=== PATIENT | male | born 1975 | race Caucasian/White ===

== ENCOUNTER 2018-07-31 03:29 | Emergency (ER) | payer MEDICAID ==
[~2018-07-31 03:29] MED LIST: ALLO100T PO; HYDR-4353 PO; IBUP-1984 PO; OMEP40CA37 PO
--- NOTE | 2018-07-31 03:49 | NUR ---
PT AGGITATED AND REFUSED BLOOD DRAW AND STATED "DONT TOUCH ME...TAKE THIS STUFF OFF ME...END OF STORY". OFFICER REMINDED HIM THAT HE HAD CONSENTED TO THE BLOOD DRAW. PT MAINTAINED HIS STANCE ON THIS. OFFICER STATED THEY WERE NOW LEAVING BACK TO [place] TO GET A WARRENT FOR THE BLOOD DRAW.
== END 2018-07-31 03:40 | disposition left against medical advice (07) ==
LOC: ER 03:30
DX: R45.1 Restlessness and agitation (principal); Z53.21 Procedure and treatment not carried out due to patient leaving prior to being seen by health care provider

== ENCOUNTER 2018-07-31 04:49 | Emergency (ER) | payer MEDICAID ==
[~2018-07-31] VITALS: Ht 188 cm; Wt 129.6 kg
[2018-07-31 04:51] VITALS: BP 154/96
== END 2018-07-31 05:18 ==
LOC: ER 04:50
DX: M70.22 Olecranon bursitis, left elbow (principal); M25.532 Pain in left wrist; M25.531 Pain in right wrist; Z98.890 Other specified postprocedural states; Z79.899 Other long term (current) drug therapy; V89.2XXA Person injured in unspecified motor-vehicle accident, traffic, initial encounter; Y93.89 Activity, other specified; Y92.89 Other specified places as the place of occurrence of the external cause; Y99.8 Other external cause status
CPT/HCPCS: 99283

== ENCOUNTER 2021-05-23 01:04 | Inpatient (IN) | payer MEDICAID ==
[~2021-05-23] VITALS: Ht 190.5 cm; Wt 120.5 kg
[~2021-05-23 01:04] MED LIST changes: +OMEP40CA21 PO; -OMEP40CA37 PO
[2021-05-23] MEDS ORDERED: morphine 4 MG/ML inj SYRINge IV ONE (01:30)
[2021-05-23] MEDS ORDERED: ondansetron/PF 4mg/2ml inj IV ONE (01:30)
[2021-05-23] MEDS ORDERED: vancomycin/NS 1 GM ADD-VANTAGE 250 ML IV ONE (02:00)
[2021-05-23] MEDS ORDERED: cefepime 1GM in D5W 50mL 50 ML IV ONE (02:00)
[2021-05-23 02:17] LABS: BASOPHILS # (AUTO) 0.1 X10'3 (0-0.2); BASOPHILS % (AUTO) 0.7 % (0-1); EOSINOPHILS # (AUTO) 0.2 X10'3 (0-0.9); EOSINOPHILS % (AUTO) 1.7 % (0-6); HEMATOCRIT 36.7 % (42.0-52.0); HEMOGLOBIN 12.7 g/dl (14.0-17.9); LYMPHOCYTES # (AUTO) 1.2 X10'3 (1.1-4.8); LYMPHOCYTES % (AUTO) 13.1 % (21-51); MEAN CORPUSCULAR HEMOGLOBIN 29.9 PG (27.0-31.0); MEAN CORPUSCULAR HGB CONC 34.6 g/dL (33.0-36.5); MEAN CORPUSCULAR VOLUME 86.4 FL (78-98); MEAN PLATELET VOLUME 7.6 FL (7.4-10.4); MONOCYTES # (AUTO) 0.6 X10'3 (0-0.9); MONOCYTES % (AUTO) 6.7 % (2-12); NEUTROPHILS # (AUTO) 7.2 X10'3 (1.8-7.7); NEUTROPHILS % (AUTO) 77.8 % (42-75); PLATELET COUNT 207 X10'3 (140-440); RED BLOOD COUNT 4.25 X10'6 (4.70-6.10); RED CELL DISTRIBUTION WIDTH 13.5 % (11.5-14.5); WHITE BLOOD COUNT 9.2 X10'3 (4.5-11.0)
[2021-05-23 02:30] LABS: ALBUMIN 2.4 G/DL (3.4-5.0); ANION GAP 7 (8-16); BLOOD UREA NITROGEN 14 MG/DL (7-18); BUN/CREATININE RATIO 16.9 (5.4-32.0); CHLORIDE 102 MMOL/L (99-107); CREATINE KINASE 304 U/L (39-308); CREATININE 0.83 MG/DL (0.60-1.10); GLUCOSE 247 MG/DL (70-104); POTASSIUM 3.5 MMOL/L (3.5-5.1); SODIUM 135 MMOL/L (135-145); eGFR > 90 ML/MIN
[2021-05-23] MEDS ORDERED: normal saline 1000ml 1,000 ML IV ONE (04:45)
--- NOTE | 2021-05-23 06:43 | NUR ---
PT LEG ELEVATED HIGHER WITH 4 PILLOWS AND LEG STILL HOT TO TOUCH REDNED AND SWELLING IS INCREASING PER PT.
[2021-05-23] MEDS ORDERED: magnesium 2GM in 50ml NS 50 ML IV PRN (07:45)
[2021-05-23] MEDS ORDERED: acetaminophen 325mg tablet PO PRN (07:45)
[2021-05-23] MEDS ORDERED: magnesium Cl slow-release 64mg tablet PO PRN (07:45)
[2021-05-23] MEDS ORDERED: magnesium 4gm in 100ml NS 100 ML IV PRN (07:45)
[2021-05-23] MEDS ORDERED: potassium Cl 20 mEq SR tablet PO PRN ×2 (07:45)
[2021-05-23] MEDS ORDERED: morphine 2 MG/ML inj. syringe IV PRN (07:45)
[2021-05-23] MEDS ORDERED: potassium Cl 40MEQ/1/2NS 520ml 520 ML IV PRN ×2 (07:45)
[2021-05-23] MEDS ORDERED: ondansetron/PF 4mg/2ml inj IV PRN (07:45)
[2021-05-23] MEDS: K and/or MAG REPLACEMENT MC SCH ×2 (08:00→20:00)
[2021-05-23] MEDS: docusate sod 100mg capsule PO SCH ×2 (08:00→20:00)
--- NOTE | 2021-05-23 08:54 | NUR ---
went to start the iv maintance fluid and pt responed in anger that he he wants to leave the hospital ,he is angry and has not got norco and motrin and stated no dr came to see me .informed the pt that i have pain meds order morphine available if he wants ,pt refused the pain med and stated that he wants to leave .paged dr marquis.
--- NOTE | 2021-05-23 09:07 | NUR ---
SPOKE TO DR APARICIO REGARDING PT SITUATION AND PAIN PER MD GIVE 2 MG OF IV MORPHINE AND GIVE NORCO 10-325 MG PO FOR SEVERE PAIN .WILL FOLLOW THE ORDERS.
[2021-05-23] MEDS ORDERED: ibuprofen tablet 400 MG TABLET PO ONE (09:10)
[2021-05-23] MEDS: normal saline 1000ml 1,000 ML IV SCH (09:11)
[2021-05-23] MEDS ORDERED: HYDROcodone/acetaminophen 10/325mg tab PO ONE (12:00)
[2021-05-23] MEDS: HYDROcodone/acetaminophen 10/325mg tab PO PRN ×2 (13:44→22:03)
[2021-05-23] MEDS: ibuprofen tablet 400 MG TABLET PO PRN ×2 (13:44→22:02)
[2021-05-23] MEDS ORDERED: IBUP-1986 PO (13:48)
[2021-05-23] MEDS ORDERED: OMEP20CA15 PO (13:48)
--- NOTE | 2021-05-23 16:58 | NUR ---
pt went to [facility] without informing. recived call from [facility] and stated that pt is wandering about the room assisgnment .went upstair with aleyda international banker to get the pt from [facility] ,pt came back to er by himself.pt instructed that he can't leave the unit on his own without notifiecation ,informed that he has room assisgnment upstairs and instructed wait in room to get upstairs.
--- NOTE | 2021-05-23 17:04 | NUR ---
charge nurse made aware waiting for call from surgical unit .
--- NOTE | 2021-05-23 17:10 | NUR ---
paged dr marquis at this time for alchol withdrawl protocoland to inform about the incident.
[2021-05-23] MEDS ORDERED: haloperidol 5mg tablet PO PRN (17:15)
[2021-05-23] MEDS ORDERED: haloperidol lactate 5mg/ml inj IM PRN (17:15)
[2021-05-23] MEDS ORDERED: LORazepam 2 mg/ml vial IV PRN (17:15)
[2021-05-23] MEDS ORDERED: LORazepam 1 MG tablet PO PRN (17:15)
--- NOTE | 2021-05-23 17:20 | NUR ---
spoke to dr marquis and taken telephone orders for alchol withdrawl protocol mild and also informed about the event that pt went to pcu to get himself admitted and then came back to er.
[2021-05-23 20:00] VITALS: BP 151/84
[2021-05-24] VITALS: BP 157/92
[2021-05-24 06:20] LABS: BASOPHILS % (AUTO) 0.5 % (0-1); EOSINOPHILS # (AUTO) 0.1 X10'3 (0-0.9); EOSINOPHILS % (AUTO) 1.7 % (0-6); HEMATOCRIT 36.9 % (42.0-52.0); HEMOGLOBIN 12.6 g/dl (14.0-17.9); LYMPHOCYTES # (AUTO) 0.8 X10'3 (1.1-4.8); LYMPHOCYTES % (AUTO) 19.2 % (21-51); MEAN CORPUSCULAR HEMOGLOBIN 29.9 PG (27.0-31.0); MEAN CORPUSCULAR HGB CONC 34.1 g/dL (33.0-36.5); MEAN CORPUSCULAR VOLUME 87.5 FL (78-98); MEAN PLATELET VOLUME 7.6 FL (7.4-10.4); MONOCYTES # (AUTO) 0.4 X10'3 (0-0.9); MONOCYTES % (AUTO) 9.6 % (2-12); PLATELET COUNT 146 X10'3 (140-440); RED BLOOD COUNT 4.22 X10'6 (4.70-6.10); RED CELL DISTRIBUTION WIDTH 13.4 % (11.5-14.5); WHITE BLOOD COUNT 4.3 X10'3 (4.5-11.0)
[2021-05-24 06:23] LABS: ANION GAP 9 (8-16); BLOOD UREA NITROGEN 10 MG/DL (7-18); BUN/CREATININE RATIO 15.2 (5.4-32.0); CALCIUM 7.9 MG/DL (8.5-10.1); CHLORIDE 103 MMOL/L (99-107); CREATININE 0.66 MG/DL (0.60-1.10); GLUCOSE 255 MG/DL (70-104); MAGNESIUM 1.7 MG/DL (1.5-2.4); SODIUM 136 MMOL/L (135-145); TOTAL CARBON DIOXIDE 23.8 MMOL/L (24-32); eGFR > 90 ML/MIN
--- NOTE | 2021-05-24 06:32 | NUR ---
Problems reprioritized. Patient report given, questions answered & plan of care reviewed with ILEANA Vann.
[2021-05-24 07:30] VITALS: BP 152/86
[2021-05-24] MEDS: folic acid 1mg tablet PO SCH (07:33)
[2021-05-24] MEDS: multivitamins, therapeutics tablet PO SCH (07:33)
[2021-05-24] MEDS: thiamine 100mg tablet PO SCH (07:34)
[2021-05-24] MEDS: K and/or MAG REPLACEMENT MC SCH ×2 (07:35→19:49)
[2021-05-24] MEDS: docusate sod 100mg capsule PO SCH ×2 (07:35→20:00)
--- NOTE | 2021-05-24 08:36 | NUR ---
PAGER ID: [phone] MESSAGE: [phone] Jose Macedo: patient admitted for IV abx, and has none ordered... thanks, sylvia [phone]
[2021-05-24] MEDS: normal saline 1000ml 1,000 ML IV SCH (10:20)
[2021-05-24] MEDS: vancomycin/NS 1 GM ADD-VANTAGE 250 ML X 1 DOSE IV SCH ×2 (10:20→17:46)
[2021-05-24] MEDS: HYDROcodone/acetaminophen 10/325mg tab PO PRN ×2 (10:31→17:33)
[2021-05-24] MEDS: ibuprofen tablet 400 MG TABLET PO PRN ×2 (10:31→17:32)
[2021-05-24 13:00] VITALS: BP 143/81
[2021-05-24] MEDS: cefepime 1GM in D5W 50mL 50 ML IV SCH (16:56)
--- NOTE | 2021-05-24 18:44 | NUR ---
Problems reprioritized. Patient report given, questions answered & plan of care reviewed with ILEANA Kennedy.
[2021-05-25] VITALS: BP 133/82
[2021-05-25] MEDS: cefepime 1GM in D5W 50mL 50 ML IV SCH ×4 (01:04→22:27)
[2021-05-25] MEDS: vancomycin/NS 1 GM ADD-VANTAGE 250 ML X 1 DOSE IV SCH ×2 (01:43→10:55)
[2021-05-25] MEDS: ibuprofen tablet 400 MG TABLET PO PRN ×2 (05:55→23:06)
[2021-05-25] MEDS: HYDROcodone/acetaminophen 10/325mg tab PO PRN ×3 (05:55→20:50)
--- NOTE | 2021-05-25 06:30 | NUR ---
Problems reprioritized. Patient report given, questions answered & plan of care reviewed with ILEANA Nava.
[2021-05-25 06:33] LABS: BASOPHILS % (AUTO) 0.3 % (0-1); EOSINOPHILS # (AUTO) 0.1 X10'3 (0-0.9); EOSINOPHILS % (AUTO) 1.7 % (0-6); HEMATOCRIT 38.6 % (42.0-52.0); HEMOGLOBIN 13.1 g/dl (14.0-17.9); LYMPHOCYTES # (AUTO) 1.2 X10'3 (1.1-4.8); LYMPHOCYTES % (AUTO) 20.1 % (21-51); MEAN CORPUSCULAR HGB CONC 33.9 g/dL (33.0-36.5); MEAN CORPUSCULAR VOLUME 88.4 FL (78-98); MEAN PLATELET VOLUME 7.6 FL (7.4-10.4); MONOCYTES # (AUTO) 0.6 X10'3 (0-0.9); MONOCYTES % (AUTO) 9.4 % (2-12); NEUTROPHILS # (AUTO) 4.2 X10'3 (1.8-7.7); NEUTROPHILS % (AUTO) 68.5 % (42-75); PLATELET COUNT 200 X10'3 (140-440); RED BLOOD COUNT 4.37 X10'6 (4.70-6.10); RED CELL DISTRIBUTION WIDTH 13.5 % (11.5-14.5); WHITE BLOOD COUNT 6.2 X10'3 (4.5-11.0)
--- NOTE | 2021-05-25 06:46 | NUR ---
Patient in room [facility] 358. I have received report from ILEANA Kennedy and had the opportunity to ask questions and assume patient care.
[2021-05-25 07:00] VITALS: BP 120/63
[2021-05-25 07:10] LABS: ALBUMIN 2.3 G/DL (3.4-5.0); ANION GAP 8 (8-16); BLOOD UREA NITROGEN 11 MG/DL (7-18); CALCIUM 8.4 MG/DL (8.5-10.1); CHLORIDE 104 MMOL/L (99-107); CREATININE 0.61 MG/DL (0.60-1.10); GLUCOSE 129 MG/DL (70-104); POTASSIUM 4.8 MMOL/L (3.5-5.1); SODIUM 139 MMOL/L (135-145); TOTAL CARBON DIOXIDE 27.4 MMOL/L (24-32); eGFR > 90 ML/MIN
[2021-05-25] MEDS: K and/or MAG REPLACEMENT MC SCH ×2 (08:00→20:00)
[2021-05-25] MEDS: docusate sod 100mg capsule PO SCH ×2 (08:21→20:00)
[2021-05-25] MEDS: thiamine 100mg tablet PO SCH (08:21)
[2021-05-25] MEDS: folic acid 1mg tablet PO SCH (08:21)
[2021-05-25] MEDS: multivitamins, therapeutics tablet PO SCH (08:21)
[2021-05-25] MEDS ORDERED: VANCOMYCIN LEVEL IV ONE (09:30)
[2021-05-25 12:00] VITALS: BP 149/83
[2021-05-25] MEDS ORDERED: linezolid 600mg tablet PO ONE (16:40)
[2021-05-25] MEDS: VANCOmycin 1250MG/NS 250ml Bag 250 ML IV SCH ×2 (17:11→22:28)
--- NOTE | 2021-05-25 18:34 | NUR ---
Problems reprioritized. Patient report given, questions answered & plan of care reviewed with ILEANA Kennedy.
[2021-05-25 20:00] VITALS: BP 160/80
[2021-05-25] MEDS: lactobacillus rhamnosus 10,000 MMU CELLS/CAPSULE PO SCH (20:00)
[2021-05-26] VITALS: BP 160/82
--- NOTE | 2021-05-26 05:30 | NUR ---
Patient refused IV attempt, morning labs and refused all po meds last evening. Pt was educated on the importance of these things in order to provide appropriate care. Patient states "I will speak to my doctor about it today." Charge nurse informed of patient's refusal. RN to continue to follow and monitor patient as appropriate.
--- NOTE | 2021-05-26 06:30 | NUR ---
Problems reprioritized. Patient report given, questions answered & plan of care reviewed with ILEANA Vann.
--- NOTE | 2021-05-26 07:20 | NUR ---
No IV access at this time. aware. PIC RN is going to attempt IV today. Addendum: 05/26/21 at 0721 by Soo Lopez RN Amended: Links added.
[2021-05-26 07:30] VITALS: BP 151/83
[2021-05-26] MEDS: K and/or MAG REPLACEMENT MC SCH ×2 (08:00→19:59)
[2021-05-26] MEDS: docusate sod 100mg capsule PO SCH ×2 (08:00→19:59)
[2021-05-26] MEDS: ibuprofen tablet 400 MG TABLET PO PRN ×3 (10:18→23:24)
[2021-05-26] MEDS: folic acid 1mg tablet PO SCH (10:18)
[2021-05-26] MEDS: multivitamins, therapeutics tablet PO SCH (10:18)
[2021-05-26] MEDS: lactobacillus rhamnosus 10,000 MMU CELLS/CAPSULE PO SCH ×2 (10:18→19:59)
[2021-05-26] MEDS: thiamine 100mg tablet PO SCH (10:19)
[2021-05-26] MEDS: HYDROcodone/acetaminophen 10/325mg tab PO PRN ×3 (10:19→23:23)
[2021-05-26] MEDS: cefepime 1GM in D5W 50mL 50 ML IV SCH ×3 (10:30→23:27)
[2021-05-26] MEDS: VANCOmycin 1250MG/NS 250ml Bag 250 ML IV SCH ×2 (11:49→20:18)
[2021-05-26 12:30] VITALS: BP 136/82
--- NOTE | 2021-05-26 15:36 | NUR ---
PAGER ID: [phone] MESSAGE: [phone] Jose HOWARD: WOULD YOU LIKE THE DIABETES PROTOCOL ON THIS PATIENT? FIELD ARTILLERY RADAR OPERATOR ALSO NEEDS TO KNOW IF YOU HAVE DISCUSSED DIABETES WITH THE PATIENT YET BECAUSE HE CANNOT DO HIS EDUCATION UNTIL YOU DO SO. THANK YOU!! [phone] FERNANDO
--- NOTE | 2021-05-26 17:03 | NUR ---
DM Consult: Pt admit DX RLE cellulitis w/ hx heavy etoh per EMR. Noted no PMH DM w/ A1C 7.0% this admit. Receiving thiamin, folic, MVI for etoh. RD d/w RN requires physician to notify pt of DX prior to RD education as well as glycemic protocol if MD agreeable. Pt Glu checked daily in AM though no CMP today Glu fluctuates 129-255mg/dl past 3 days without glycemic protocol. RN reports pt refusing Glu checks attempts today. PO 100% avg carb controlled diet w/ double proteins TIDWM meeting needs. LBM 05/25. Will continue to monitor. Rec: 1. continue carb controlled diet; double proteins TIDWM for satiety 2. routine bowel care 3. scaled wt this admit; subsequent weekly wts 4. DM ed following official DM DX by physician prior to discharge; A1C 7.0% Addendum: 05/26/21 at [address] Amended: Links added.
--- NOTE | 2021-05-26 18:15 | NUR ---
Problems reprioritized. Patient report given, questions answered & plan of care reviewed with ILEANA JONES.
[2021-05-26 20:00] VITALS: BP 145/79
[2021-05-27] VITALS: BP 163/88
[2021-05-27] MEDS: VANCOmycin 1250MG/NS 250ml Bag 250 ML IV SCH ×3 (04:27→20:00)
--- NOTE | 2021-05-27 06:37 | NUR ---
Problems reprioritized. Patient report given, questions answered & plan of care reviewed with ILEANA Peace.
[2021-05-27 06:48] LABS: ALBUMIN 2.5 G/DL (3.4-5.0); ANION GAP 7 (8-16); BLOOD UREA NITROGEN 20 MG/DL (7-18); BUN/CREATININE RATIO 27.4 (5.4-32.0); C-REACTIVE PROTEIN 2.02 MG/DL (0.0-0.5); CALCIUM 8.7 MG/DL (8.5-10.1); CHLORIDE 103 MMOL/L (99-107); CREATININE 0.73 MG/DL (0.60-1.10); GLUCOSE 321 MG/DL (70-104); MAGNESIUM 2.3 MG/DL (1.5-2.4); POTASSIUM 4.7 MMOL/L (3.5-5.1); SODIUM 135 MMOL/L (135-145); TOTAL CARBON DIOXIDE 24.8 MMOL/L (24-32); eGFR > 90 ML/MIN
[2021-05-27 06:49] LABS: EOSINOPHILS # (AUTO) 0.1 X10'3 (0-0.9); LYMPHOCYTES # (AUTO) 1.8 X10'3 (1.1-4.8); LYMPHOCYTES % (AUTO) 32.7 % (21-51); MEAN PLATELET VOLUME 8.3 FL (7.4-10.4); MONOCYTES # (AUTO) 0.5 X10'3 (0-0.9); MONOCYTES % (AUTO) 9.2 % (2-12)
[2021-05-27 06:52] LABS: BASOPHILS % (AUTO) 0.4 % (0-1); EOSINOPHILS % (AUTO) 2.1 % (0-6); HEMATOCRIT 39.8 % (42.0-52.0); HEMOGLOBIN 13.5 g/dl (14.0-17.9); MEAN CORPUSCULAR HEMOGLOBIN 30.5 PG (27.0-31.0); MEAN CORPUSCULAR VOLUME 89.7 FL (78-98); NEUTROPHILS # (AUTO) 3.1 X10'3 (1.8-7.7); NEUTROPHILS % (AUTO) 55.6 % (42-75); PLATELET COUNT 177 X10'3 (140-440); RED BLOOD COUNT 4.44 X10'6 (4.70-6.10); RED CELL DISTRIBUTION WIDTH 13.4 % (11.5-14.5); WHITE BLOOD COUNT 5.5 X10'3 (4.5-11.0)
[2021-05-27] MEDS: HYDROcodone/acetaminophen 10/325mg tab PO PRN ×3 (07:10→19:59)
[2021-05-27] MEDS: lactobacillus rhamnosus 10,000 MMU CELLS/CAPSULE PO SCH ×2 (07:10→20:00)
[2021-05-27] MEDS: thiamine 100mg tablet PO SCH (07:11)
[2021-05-27] MEDS: multivitamins, therapeutics tablet PO SCH (07:11)
[2021-05-27] MEDS: folic acid 1mg tablet PO SCH (07:11)
[2021-05-27 07:45] LABS: HIV ANTIBODY 1&2 RAPID NON-REACTIVE (Neg)
[2021-05-27] MEDS: normal saline 1000ml 1,000 ML IV SCH (07:45)
[2021-05-27] MEDS: K and/or MAG REPLACEMENT MC SCH ×2 (08:00→20:00)
[2021-05-27] MEDS: docusate sod 100mg capsule PO SCH ×2 (08:00→20:00)
[2021-05-27] MEDS: CEFEPIME 2gm in D5W 50mL 50 ML IV SCH ×2 (08:00→17:11)
[2021-05-27 09:50] VITALS: BP 121/48
--- NOTE | 2021-05-27 11:28 | NUR ---
Patient mad about still being here in the hospital, states Dr. Garcia said she would be in to see him this morning. Explained to the patient that she was in to see him but he requested to take a shower.
[2021-05-27] MEDS ORDERED: VANCOMYCIN LEVEL IV ONE ×2 (11:30→19:30)
--- NOTE | 2021-05-27 11:36 | NUR ---
NM will not be able to do the bone scan do to not having a dose for the scan to be completed. Informed patient, patient states that Dr. Hayes told him he could do the bone scan out patient if needed. Patients IV fell out and patient is refusing for another one to be placed. Patient refused labs which was a Vanco trough as well. Sent page to Dr. Garcia informing her that patient is requesting to see her.
[2021-05-27] MEDS: ibuprofen tablet 400 MG TABLET PO PRN ×2 (12:28→19:59)
--- NOTE | 2021-05-27 14:36 | NUR ---
PAGER ID: [phone] MESSAGE: Jose Macedo states that you said he was going to be put on PO abx, he doesn't want an IV at all. Are we switching to PO? Nata [id number] Addendum: 05/27/21 at 1440 by Nata Meyer RN Dr. Garcia returned page, she states that she told the patient that she would put him on PO abx when the redness and swelling is the size of an orange, she did not state that she would put him on abx at this time. IV abx are needed at this time for better penetration.
[2021-05-27] MEDS ORDERED: dextrose 50%-water 50ml dispensing syringe IV PRN ×2 (15:15)
[2021-05-27] MEDS ORDERED: insulin Lispro (HumaLOG) vial - multi-dose SQ SCH (15:15)
[2021-05-27] MEDS ORDERED: dextrose ORAL solution 15 GM/59 ML bottle PO PRN ×2 (15:15)
[2021-05-27] MEDS ORDERED: glucagon, human recombinant 1mg kit SUBCUT PRN (15:15)
--- NOTE | 2021-05-27 15:20 | NUR ---
PAGER ID: [phone] MESSAGE: Jose Macedo I put him on the hyper/hypo glycemic protocol after reading your note. He has not been on the protocol and his A1C is 7.0. Nata [phone]
[2021-05-27 20:00] VITALS: BP 152/78
[2021-05-27] MEDS: insulin glargine (Lantus) pen - multi-dose SQ SCH (21:00)
[2021-05-28] VITALS: BP 152/81
[2021-05-28] MEDS: CEFEPIME 2gm in D5W 50mL 50 ML IV SCH ×3 (00:09→15:56)
[2021-05-28] MEDS: VANCOmycin 1250MG/NS 250ml Bag 250 ML IV SCH (04:00)
--- NOTE | 2021-05-28 06:44 | NUR ---
Problems reprioritized. Patient report given, questions answered & plan of care reviewed with ILEANA Hnana.
--- NOTE | 2021-05-28 06:55 | NUR ---
Patient in room [facility] 358. I have received report from Marcia TEJEDA and had the opportunity to ask questions and assume patient care.
--- NOTE | 2021-05-28 07:30 | NUR ---
Pt is refusing ALL Diabetic care, pt states he is NOT DM and will not be on CC diet or allowed to be accu check. Pt also has a back pack full of muffins, sandwiches, juices and sodas which he eats through the day. His states his mother brings him snacks. he is Rude and belligerent. Pt mention he will place a formal complain because this hospital is horrible. Pt states he is going home today and wants paperwork ready. Will page Dr marquis.
[2021-05-28] MEDS: K and/or MAG REPLACEMENT MC SCH ×2 (08:00→20:00)
[2021-05-28] MEDS: docusate sod 100mg capsule PO SCH ×2 (08:00→20:00)
[2021-05-28] MEDS: ibuprofen tablet 400 MG TABLET PO PRN ×3 (08:25→21:30)
[2021-05-28] MEDS: HYDROcodone/acetaminophen 10/325mg tab PO PRN ×3 (08:25→21:30)
[2021-05-28] MEDS: multivitamins, therapeutics tablet PO SCH (08:26)
[2021-05-28] MEDS: thiamine 100mg tablet PO SCH (08:27)
[2021-05-28] MEDS: lactobacillus rhamnosus 10,000 MMU CELLS/CAPSULE PO SCH ×2 (08:27→20:00)
[2021-05-28] MEDS: folic acid 1mg tablet PO SCH (08:28)
--- NOTE | 2021-05-28 09:30 | NUR ---
Pt refusing IV antibiotics, refused labs and his vanco trough. Yelled at lab and told them to leave him alone. Pharmacy aware of refusal.
[2021-05-28 11:00] VITALS: BP 152/84
--- NOTE | 2021-05-28 12:24 | NUR ---
PAGER ID: [phone] MESSAGE: Chetan Remington #[id number]- Pt finally got the scan done, he would like to speak to yo about what he wants you to do for his DC orders. He has questions for you. Thank you Cyndi Turner [phone]
--- NOTE | 2021-05-28 15:16 | NUR ---
kyler Torres Accu checks Addendum: 05/28/21 at 1523 by Cyndi Good RN Amended: Links added.
--- NOTE | 2021-05-28 17:32 | NUR ---
PAGER ID: [phone] MESSAGE: Chetan Macedo 358B- Pt's can results are up. thank you. Pt being DC'ed?? thank you Cyndi Turner [phone]
[2021-05-28 18:00] VITALS: BP 142/77
--- NOTE | 2021-05-28 18:11 | NUR ---
Patient in room [facility]ANK[facility] 358B. I have received report from ILEANA Hanna and had the opportunity to ask questions and assume patient care.
--- NOTE | 2021-05-28 19:05 | NUR ---
Patient refused physical assessment, medications, and any IV to be initiated since he pulled out the other one. Attempted to explain the risks of refusing treatment, patient verbalized "you guys are not doing anything for me, cant keep an IV, I'm just sitting here and I can do that at home. Just discharge me and give me oral antibiotics Dr. Massey said they work just as good as IV antibiotics. So why can't I go home" Attempted again to make patient understand that some conditions require IV antibiotics since it works faster, although oral works good too, but it can onl be administered with a doctor's order. Patient refused to be educated, stated "this is doing anything to me. I just wanna go home. I have called Dr Montalvo and Pablito for second opinion. They'll come first thing in the morning and then I will get to go home. You're just making me madder. We're done talking." I exited patient's room, as he was throwing things on the ground. valve setter aware. Will continue to monitor.
--- NOTE | 2021-05-28 19:27 | NUR ---
Pt angry refusing care pulled only IV, Pt cussing, angry and arguing about plan of care communicated. Pt to get a PICC on Saturday for IV antibiotics for 6weeks. Pt refuses to get a picc, demanding to speak to Dr marquis and threatening to call adolescent specialist. Dr. Marquis called and spoke to pt. Pt refusing all DM protocol care as well Dr shelley. pt very rude and angry. stating no one has given him any care. which is not true, he was a very heavy load to have, demanding, rude and abusive verbally. Refusing care.
[2021-05-28] MEDS: insulin glargine (Lantus) pen - multi-dose SQ SCH (22:04)
[2021-05-29] MEDS: CEFEPIME 2gm in D5W 50mL 50 ML IV SCH
--- NOTE | 2021-05-29 05:30 | NUR ---
Patient put economist research assistant light, saying he wants to shower. This RN set up shower and brought shampoo and lotion to patient's room to inform that the bathroom is ready. Patient shouted at this RN saying "I asked for this last night, and no one came in to tell me. I have been in this hospital for a week and no one has given me a toothbrush!" This RN responded "when I came in last night to talk, you said you didn't want to talk anymore.." This RN realized patient has been recording this conversation, and verbalized "you do not have permission to record me." patient then shouted "who told you I can't record? son of a bitch, I can do whatever." This RN then exited the room at this time as she felt unsafe, as patient continued to shout unspeakable words out loud.
--- NOTE | 2021-05-29 06:13 | NUR ---
Problems reprioritized. Patient report given, questions answered & plan of care reviewed with ILEANA Peace and Azar Student Nurse.
--- NOTE | 2021-05-29 07:20 | NUR ---
I have received report from NOC shift RN and had the opportunity to ask questions and assume patient care.
--- NOTE | 2021-05-29 07:43 | NUR ---
PAGER ID: [phone] MESSAGE: Aleida MacedoB wants to be discharged today. He doesn't have an IV, very hard stick. Can I get an order for PO Ativan? Nata [phone]
[2021-05-29] MEDS: normal saline 1000ml 1,000 ML IV SCH ×2 (07:45→10:41)
[2021-05-29] MEDS: K and/or MAG REPLACEMENT MC SCH (08:00)
[2021-05-29] MEDS ORDERED: cefepime inj 2 GM in normal saline 100ml IV soln 100 ML IV SCH (08:00)
[2021-05-29] MEDS: docusate sod 100mg capsule PO SCH (08:00)
[2021-05-29] MEDS ORDERED: CEFEPIME 2gm in D5W 50mL 50 ML IV SCH (08:00)
[2021-05-29] MEDS: thiamine 100mg tablet PO SCH (08:14)
[2021-05-29] MEDS: lactobacillus rhamnosus 10,000 MMU CELLS/CAPSULE PO SCH (08:14)
[2021-05-29] MEDS: multivitamins, therapeutics tablet PO SCH (08:14)
[2021-05-29] MEDS: folic acid 1mg tablet PO SCH (08:15)
[2021-05-29] MEDS: HYDROcodone/acetaminophen 10/325mg tab PO PRN ×2 (08:22→14:33)
[2021-05-29] MEDS: ibuprofen tablet 400 MG TABLET PO PRN ×2 (08:22→14:33)
[2021-05-29] MEDS ORDERED: LORazepam 0.5 MG tablet PO PRN (09:00)
[2021-05-29 11:53] VITALS: BP 153/84
--- NOTE | 2021-05-29 14:02 | NUR ---
PAGER ID: [phone] MESSAGE: Jose Macedo moved to [id number]... Dr Hayes came and saw patient. He will be going on PO medications. He's wondering if he will be discharged today or not? Nata [id number]
--- NOTE | 2021-05-29 14:30 | NUR ---
Patient refusing PICC line, Dr. Hayes educated patient at bedside, refused. Patient states that he will follow up with his surgeon in [place]. Patient states that he will call him and he knows that the surgeon will take him into his office right away. Patient wants to take PO ABX and not have a PICC. Patient aware that ABX will only suppress the infection and not cure it. Patient states that he "doesn't want a PICC in [his] arm from 6 to 8 weeks". Patient ops to only take PO ABX medications. Education per Dr. Hayes over risks and benefits were completed. Patient verbally acknowledges understanding.
--- NOTE | 2021-05-29 14:48 | NUR ---
F/u 05/29: CHRISTINA d/w RN who reports pt aware of DM DX though in denial mostly. Pt seen by CHRISTINA for written/verbal DM ed w/ RD contact information provided. Pt declined verbal ed at this time but was agreeable to written DM ed. CHRISTINA encouraged pt to contact dietitian's office if further questions/concerns. Addendum: 05/29/21 at [address] Amended: Links added.
[2021-05-29] MEDS ORDERED: CEPH-585 PO (14:54)
--- NOTE | 2021-05-29 15:42 | NUR ---
Patient discharged, all belongings are packed and in patients possession. IV discontinued. Patient aware of all doses to take for ABX and home medications, documented next dose on paper work. Wound care supplies provided and in belongings. Education completed and acknowledged verbally of understanding by patient. Patient to pickle pumper medication ABX at pharmacy on file. WILLIAM, A&Ox4.
--- NOTE | 2021-05-29 15:42 | NUR ---
Patient discharged on paper, paper work signed, education completed. Waiting on a ride.
--- NOTE | 2021-05-29 15:54 | NUR ---
Wound care was at bedside to see pt prior to discharge. Pt allowed for examination. We were consulted for right great toe wound. The right great toe presented as blackened eschar. Painted with betadine as it was intact. Likely a puncture wound or DM ulcer. The pt had abscess on the right lower leg with bright red inflammation and purulent drainage. Applied oil emulsion and covered with gauze, secured with medipore tape. Pt repeatedly tried to "pop" the wound against wound care education.
[2021-05-30] MEDS ORDERED: cefepime 2g/NS 100ml ADVANTAGE 100 ML IV SCH
== END 2021-05-29 15:50 | disposition home or self-care (01) | DRG 349 ==
LOC: ER 01:05 → ED HOLD 07:49 → SUR 3N 17:30
PROVIDERS: ADMIT Internal Medicine; ATTEND Internal Medicine
PROC: CP1C1ZZ Planar Nuclear Medicine Imaging of Right Lower Extremity using Technetium 99m (Tc-99m) (ICD-10-PCS; principal; 2021-05-28)
DX: T84.622A Infection and inflammatory reaction due to internal fixation device of right tibia, initial encounter (principal); L03.115 Cellulitis of right lower limb; E11.40 Type 2 diabetes mellitus with diabetic neuropathy, unspecified; F10.20 Alcohol dependence, uncomplicated; K21.9 Gastro-esophageal reflux disease without esophagitis; M10.9 Gout, unspecified; Z96.661 Presence of right artificial ankle joint; Y83.1 Surgical operation with implant of artificial internal device as the cause of abnormal reaction of the patient, or of later complication, without mention of misadventure at the time of the procedure; M24.671 Ankylosis, right ankle; G89.29 Other chronic pain; Z53.29 Procedure and treatment not carried out because of patient's decision for other reasons; W23.1XXA Caught, crushed, jammed, or pinched between stationary objects, initial encounter; S87.81XA Crushing injury of right lower leg, initial encounter; Y93.89 Activity, other specified; Y92.89 Other specified places as the place of occurrence of the external cause; Y99.8 Other external cause status
CPT/HCPCS: 36415; 73590; 78315; 80048; 80202; 82550; 82948; 83036; 83605; 83735; 84550; 85025; 86140; 86703; 87040; 87070; 87081; 93971; 96365; 96366; 96368; 96375; 99285; A9503; G0378; J0692; J1815; J2270; J2405; J3370; J7030

== ENCOUNTER 2021-10-17 13:46 | Inpatient (IN) | payer MEDICAID ==
[~2021-10-17] VITALS: Ht 190.5 cm; Wt 129.6 kg
[~2021-10-17 13:46] MED LIST changes: -ALLO100T PO; -HYDR-4353 PO; -IBUP-1984 PO; +IBUP-1986 PO; +OMEP20CA15 PO; -OMEP40CA21 PO
[2021-10-17] MEDS ORDERED: aspirin 325mg tablet PO ONE (14:30)
[2021-10-17 14:31] LABS: BASOPHILS % (AUTO) 0.2 % (0-1); EOSINOPHILS # (AUTO) 0.1 X10'3 (0-0.9); HEMATOCRIT 49.5 % (42.0-52.0); HEMOGLOBIN 16.4 g/dl (14.0-17.9); LYMPHOCYTES # (AUTO) 2.2 X10'3 (1.1-4.8); LYMPHOCYTES % (AUTO) 29.3 % (21-51); MEAN CORPUSCULAR HEMOGLOBIN 28.5 PG (27.0-31.0); MEAN CORPUSCULAR VOLUME 86.2 FL (78-98); MEAN PLATELET VOLUME 7.7 FL (7.4-10.4); MONOCYTES # (AUTO) 0.7 X10'3 (0-0.9); MONOCYTES % (AUTO) 8.7 % (2-12); NEUTROPHILS # (AUTO) 4.6 X10'3 (1.8-7.7); NEUTROPHILS % (AUTO) 60.8 % (42-75); PLATELET COUNT 179 X10'3 (140-440); RED BLOOD COUNT 5.74 X10'6 (4.70-6.10); RED CELL DISTRIBUTION WIDTH 14.3 % (11.5-14.5); WHITE BLOOD COUNT 7.6 X10'3 (4.5-11.0)
[2021-10-17 14:33] LABS: APTT 27 SECONDS (22-32)
[2021-10-17 14:37] LABS: ALANINE AMINOTRANSFERASE 34 U/L (12-78); ALBUMIN 3.8 G/DL (3.4-5.0); ALBUMIN/GLOBULIN RATIO 0.8 (1.1-1.5); ALKALINE PHOSPHATASE 113 IU/L (46-116); ANION GAP 5 (8-16); ASPARTATE AMINO TRANSFERASE 36 U/L (10-37); BLOOD UREA NITROGEN 16 MG/DL (7-18); BUN/CREATININE RATIO 26.7 (5.4-32.0); CALCIUM 9.7 MG/DL (8.5-10.1); CHLORIDE 102 MMOL/L (99-107); GLUCOSE 129 MG/DL (70-104); SODIUM 137 MMOL/L (135-145); TOTAL CARBON DIOXIDE 30.4 MMOL/L (24-32); TOTAL PROTEIN 8.3 G/DL (6.4-8.2); eGFR > 90 ML/MIN
[2021-10-17 15:21] LABS: ETHANOL < 0.010 GM/DL (0.0-0.010)
[2021-10-17] MEDS ORDERED: acetaminophen 325mg tablet PO PRN ×2 (15:30)
[2021-10-17] MEDS ORDERED: ondansetron/PF 4mg/2ml inj IV PRN (15:30)
[2021-10-17] MEDS ORDERED: LORazepam 2 mg/ml vial IV PRN (15:30)
[2021-10-17] MEDS ORDERED: potassium CL 10mEq/100ml bag 100 ML IV PRN (15:30)
[2021-10-17] MEDS ORDERED: magnesium 2GM in 50ml NS 50 ML IV PRN (15:30)
[2021-10-17] MEDS ORDERED: haloperidol 5mg tablet PO PRN (15:30)
[2021-10-17] MEDS ORDERED: haloperidol lactate 5mg/ml inj IM PRN (15:30)
[2021-10-17] MEDS ORDERED: magnesium hydroxide 30ml (MOM) UD suspension PO PRN (15:30)
[2021-10-17] MEDS ORDERED: potassium Cl 20 mEq SR tablet PO PRN ×2 (15:30)
[2021-10-17] MEDS ORDERED: mag hydrox/Alum hydrox/simeth 30ml oral suspension PO PRN (15:30)
[2021-10-17] MEDS ORDERED: magnesium 4gm in 100ml NS 100 ML IV PRN (15:30)
[2021-10-17] MEDS ORDERED: iohexol 350MG/ML 100ml bottle IV ONE (15:35)
[2021-10-17] MEDS: thiamine 100mg tablet PO SCH ×2 (15:43→16:06)
[2021-10-17] MEDS: folic acid 1mg tablet PO SCH ×2 (15:44→16:06)
[2021-10-17] MEDS: multivitamins, therapeutics tablet PO SCH ×2 (15:44→16:06)
[2021-10-17] MEDS ORDERED: dextrose 50%-water 50ml dispensing syringe IV PRN ×2 (15:55)
[2021-10-17] MEDS ORDERED: MESSAGE TO PHARMACY PO ONE (15:55)
[2021-10-17] MEDS ORDERED: insulin Lispro (HumaLOG) vial - multi-dose SQ SCH (15:55)
[2021-10-17] MEDS ORDERED: glucagon, human recombinant 1mg kit SUBCUT PRN (15:55)
[2021-10-17] MEDS ORDERED: DEXTROSE 15 GM of carb/4 tabs (each vial/BOTTLE has 4 tablets) PO PRN ×2 (15:55)
[2021-10-17] MEDS: normal saline 1000ml 1,000 ML IV SCH (16:06)
--- NOTE | 2021-10-17 16:12 | NUR ---
pt was able to swollow water and asa when i passed meds next nurse passing meds pt coughed with water
[2021-10-17 16:15] LABS: URINE AMPHETAMINE SCREEN NEGATIVE (Neg); URINE BARBITUATE SCREEN NEGATIVE (Neg); URINE BENZODIAZEPINES SCREEN NEGATIVE (Neg); URINE CANNABINOID SCREEN NEGATIVE (Neg); URINE COCAINE SCREEN NEGATIVE (Neg); URINE METHADONE SCREEN NEGATIVE (Neg); URINE OPIATE SCREEN NEGATIVE (Neg); URINE PHENCYCLIDINE SCREEN NEGATIVE (Neg)
[2021-10-17] MEDS ORDERED: folic acid 1mg tablet PO ONE (16:15)
[2021-10-17] MEDS ORDERED: thiamine 100mg tablet PO ONE (16:20)
[2021-10-17] MEDS ORDERED: multivitamins, therapeutics tablet PO ONE (16:20)
[2021-10-17 16:33] LABS: HEMOGLOBIN A1C 6.2 % (4.5-6.2)
[2021-10-17] MEDS ORDERED: clopidogrel 75mg tablet PO ONE (16:40)
[2021-10-17 16:41] LABS: CHOL/HDL RATIO 5.5 (0.00-4.99); CHOLESTEROL 177 MG/DL (0-200); HDL CHOLESTEROL 32 MG/DL (35-60); LDL CHOLESTEROL 120 MG/DL (50-100); TRIGLYCERIDES 146 MG/DL (20-135)
--- NOTE | 2021-10-17 17:24 | NUR ---
vascular at bedside.
--- NOTE | 2021-10-17 17:37 | NUR ---
bedside swallow eval,pt without gag reflex when tongue depressor applied to posterior tongue.Held po meds.
[2021-10-17] MEDS: docusate sod 100mg capsule PO SCH (18:43)
[2021-10-17] MEDS: K and/or MAG REPLACEMENT MC SCH (18:43)
[2021-10-17 20:55] VITALS: BP 138/85
[2021-10-17] MEDS: insulin glargine (Lantus) pen - multi-dose SQ SCH (21:00)
[2021-10-18 00:55] VITALS: BP 143/79
[2021-10-18] MEDS: normal saline 1000ml 1,000 ML IV SCH ×3 (04:18→22:25)
[2021-10-18 05:50] LABS: BASOPHILS % (AUTO) 0.4 % (0-1); EOSINOPHILS # (AUTO) 0.1 X10'3 (0-0.9); EOSINOPHILS % (AUTO) 1.9 % (0-6); HEMATOCRIT 46.6 % (42.0-52.0); HEMOGLOBIN 15.5 g/dl (14.0-17.9); LYMPHOCYTES # (AUTO) 2.7 X10'3 (1.1-4.8); MEAN CORPUSCULAR HEMOGLOBIN 28.9 PG (27.0-31.0); MEAN CORPUSCULAR HGB CONC 33.3 g/dL (33.0-36.5); MEAN CORPUSCULAR VOLUME 86.7 FL (78-98); MEAN PLATELET VOLUME 7.9 FL (7.4-10.4); MONOCYTES # (AUTO) 0.7 X10'3 (0-0.9); MONOCYTES % (AUTO) 9.4 % (2-12); NEUTROPHILS # (AUTO) 4.1 X10'3 (1.8-7.7); NEUTROPHILS % (AUTO) 53.3 % (42-75); PLATELET COUNT 170 X10'3 (140-440); RED BLOOD COUNT 5.38 X10'6 (4.70-6.10); RED CELL DISTRIBUTION WIDTH 14.6 % (11.5-14.5); WHITE BLOOD COUNT 7.7 X10'3 (4.5-11.0)
[2021-10-18 05:57] LABS: ALANINE AMINOTRANSFERASE 32 U/L (12-78); ALBUMIN 3.4 G/DL (3.4-5.0); ALBUMIN/GLOBULIN RATIO 0.9 (1.1-1.5); ALKALINE PHOSPHATASE 104 IU/L (46-116); ANION GAP 12 (8-16); ASPARTATE AMINO TRANSFERASE 33 U/L (10-37); BILIRUBIN,TOTAL 1.2 MG/DL (0.1-1.0); BLOOD UREA NITROGEN 17 MG/DL (7-18); BUN/CREATININE RATIO 24.6 (5.4-32.0); CALCIUM 9.2 MG/DL (8.5-10.1); CHLORIDE 103 MMOL/L (99-107); CREATININE 0.69 MG/DL (0.60-1.10); GLUCOSE 129 MG/DL (70-104); LIPASE 132 U/L (73-393); MAGNESIUM 1.9 MG/DL (1.5-2.4); PHOSPHORUS 4.3 MG/DL (2.3-4.5); POTASSIUM 4.2 MMOL/L (3.5-5.1); SODIUM 140 MMOL/L (135-145); TOTAL CARBON DIOXIDE 25.3 MMOL/L (24-32); TOTAL PROTEIN 7.4 G/DL (6.4-8.2); eGFR > 90 ML/MIN
[2021-10-18 06:00] VITALS: BP 147/84
[2021-10-18] MEDS: K and/or MAG REPLACEMENT MC SCH ×2 (07:45→20:00)
[2021-10-18] MEDS ORDERED: atorvastatin 20mg tablet PO SCH (08:00)
[2021-10-18] MEDS ORDERED: clopidogrel 75mg tablet PO SCH (08:00)
[2021-10-18] MEDS: aspirin 81mg, enteric-coated 1 TAB TABLET.DR PO SCH (09:40)
[2021-10-18] MEDS: docusate sod 100mg capsule PO SCH ×2 (09:41→20:00)
[2021-10-18] MEDS: thiamine 100mg tablet PO SCH (09:41)
[2021-10-18] MEDS: multivitamins, therapeutics tablet PO SCH (09:41)
[2021-10-18] MEDS: folic acid 1mg tablet PO SCH (09:42)
[2021-10-18 11:00] VITALS: BP 125/76
--- NOTE | 2021-10-18 14:51 | NUR ---
Paged Dr. Mayes at this time with the following concern; Chetan Macedo RM [id number] patient is too big for MRI machine. Will not be able to be completed here Lizzette TEJEDA ext [phone]
[2021-10-18] MEDS: LORazepam 1 MG tablet PO PRN (15:23)
[2021-10-18 18:00] VITALS: BP 122/62
--- NOTE | 2021-10-18 19:25 | NUR ---
received report from Lizzette TEJEDA , EMS here to pick patient for MRI at [facility]. patient in stable condition V/S WNL DENIES OF PAIN. rudy administered prio to transportation
--- NOTE | 2021-10-18 20:58 | NUR ---
pt returned from [facility] via ambulance transport. tele intact. call light at bedside.
[2021-10-18] MEDS: insulin glargine (Lantus) pen - multi-dose SQ SCH (21:00)
[2021-10-18 22:00] VITALS: BP 127/61
--- NOTE | 2021-10-18 23:30 | NUR ---
Dr. Ferreira read report from MRI just faxed over from [facility]. requested consult with neurology.
--- NOTE | 2021-10-18 23:51 | NUR ---
neurlogy consult returned call to station. read the MRI brain report - MD will contact Dr. Ferreira directly. no orders at this time
[2021-10-19] MEDS ORDERED: heparin 10,000 units/1 ML INJ IV ONE
[2021-10-19] MEDS ORDERED: heparin 10,000 units/1 ML INJ IV PRN
[2021-10-19] MEDS ORDERED: heparin 25,000 UNIT/250ml bag 250 ML IV SCH
[2021-10-19 03:09] VITALS: BP 157/90
[2021-10-19 06:00] VITALS: BP 154/87
[2021-10-19 06:51] LABS: BASOPHILS % (AUTO) 0.3 % (0-1); EOSINOPHILS # (AUTO) 0.1 X10'3 (0-0.9); EOSINOPHILS % (AUTO) 1.5 % (0-6); HEMATOCRIT 43.5 % (42.0-52.0); HEMOGLOBIN 14.5 g/dl (14.0-17.9); LYMPHOCYTES # (AUTO) 2.2 X10'3 (1.1-4.8); LYMPHOCYTES % (AUTO) 34.6 % (21-51); MEAN CORPUSCULAR HEMOGLOBIN 28.8 PG (27.0-31.0); MEAN CORPUSCULAR HGB CONC 33.4 g/dL (33.0-36.5); MEAN CORPUSCULAR VOLUME 86.4 FL (78-98); MEAN PLATELET VOLUME 7.9 FL (7.4-10.4); MONOCYTES # (AUTO) 0.6 X10'3 (0-0.9); MONOCYTES % (AUTO) 9.2 % (2-12); NEUTROPHILS # (AUTO) 3.5 X10'3 (1.8-7.7); NEUTROPHILS % (AUTO) 54.4 % (42-75); PLATELET COUNT 135 X10'3 (140-440); RED BLOOD COUNT 5.03 X10'6 (4.70-6.10); RED CELL DISTRIBUTION WIDTH 14.2 % (11.5-14.5); WHITE BLOOD COUNT 6.4 X10'3 (4.5-11.0)
--- NOTE | 2021-10-19 06:58 | NUR ---
Problems reprioritized. Patient report given, questions answered & plan of care reviewed with Lizzette.
[2021-10-19 07:10] LABS: ALANINE AMINOTRANSFERASE 28 U/L (12-78); ALBUMIN 3.3 G/DL (3.4-5.0); ALBUMIN/GLOBULIN RATIO 0.8 (1.1-1.5); ALKALINE PHOSPHATASE 97 IU/L (46-116); ANION GAP 11 (8-16); ASPARTATE AMINO TRANSFERASE 32 U/L (10-37); BILIRUBIN,TOTAL 0.8 MG/DL (0.1-1.0); BLOOD UREA NITROGEN 17 MG/DL (7-18); BUN/CREATININE RATIO 28.8 (5.4-32.0); CALCIUM 8.6 MG/DL (8.5-10.1); CHLORIDE 105 MMOL/L (99-107); CREATININE 0.59 MG/DL (0.60-1.10); GLUCOSE 126 MG/DL (70-104); LIPASE 160 U/L (73-393); MAGNESIUM 1.8 MG/DL (1.5-2.4); PHOSPHORUS 3.7 MG/DL (2.3-4.5); POTASSIUM 3.9 MMOL/L (3.5-5.1); SODIUM 140 MMOL/L (135-145); TOTAL PROTEIN 7.3 G/DL (6.4-8.2); eGFR > 90 ML/MIN
[2021-10-19] MEDS: normal saline 1000ml 1,000 ML IV SCH ×2 (07:30→19:48)
[2021-10-19] MEDS: K and/or MAG REPLACEMENT MC SCH ×2 (07:44→19:43)
[2021-10-19] MEDS: thiamine 100mg tablet PO SCH (08:00)
[2021-10-19] MEDS: docusate sod 100mg capsule PO SCH ×2 (08:00→19:43)
[2021-10-19] MEDS: aspirin 81mg, enteric-coated 1 TAB TABLET.DR PO SCH (08:00)
[2021-10-19] MEDS: folic acid 1mg tablet PO SCH (08:00)
[2021-10-19] MEDS: atorvastatin 20mg tablet PO SCH (09:14)
[2021-10-19] MEDS: multivitamins, therapeutics tablet PO SCH (09:15)
[2021-10-19] MEDS: LORazepam 1 MG tablet PO PRN (09:32)
[2021-10-19] MEDS: HYDROcodone/acetaminophen 5mg/325mg tablet PO PRN (09:33)
[2021-10-19] MEDS ORDERED: iohexol 350MG/ML 100ml bottle IV ONE (10:58)
[2021-10-19 11:00] VITALS: BP 140/83
[2021-10-19 15:00] VITALS: BP 161/84
[2021-10-19 18:00] VITALS: BP 148/66
--- NOTE | 2021-10-19 19:15 | NUR ---
late entry 1849. contacted neuro-tele for repeat consult s/p CTA of the head to re-evaluate need for heparin drip. called Radiology to push images through to [facility]. sawdust machine operator Marina states she has the images. 1904 Dr from [place] called after reviewing the images and wrote recommendations for d/c heprin drip and reststarting patient on plavix and aspirin. states he will write his recommendation on [facility] for Dr. Mayes to refer to. 1904. pated Dr. Mayes that update will be available from neuro tele. if no return call or new orders, will call night time hospitalist. notified kyler Min's nurse.
--- NOTE | 2021-10-19 20:44 | NUR ---
notified Dr. Ferreira of [place] recommendations. orders received to stop heparin and restart plavix tonight and daily along with aspirin that is already ordered.
[2021-10-19] MEDS: clopidogrel 75mg tablet PO SCH (20:57)
[2021-10-19] MEDS: insulin glargine (Lantus) pen - multi-dose SQ SCH (20:58)
[2021-10-19 22:00] VITALS: BP 159/90
[2021-10-20 02:00] VITALS: BP 143/83
[2021-10-20] MEDS: HYDROcodone/acetaminophen 10/325mg tab PO PRN ×3 (02:46→20:52)
[2021-10-20] MEDS: normal saline 1000ml 1,000 ML IV SCH ×3 (03:30→23:30)
[2021-10-20 04:57] LABS: BASOPHILS % (AUTO) 0.3 % (0-1); EOSINOPHILS # (AUTO) 0.1 X10'3 (0-0.9); EOSINOPHILS % (AUTO) 1.9 % (0-6); HEMATOCRIT 43.2 % (42.0-52.0); HEMOGLOBIN 14.3 g/dl (14.0-17.9); LYMPHOCYTES # (AUTO) 1.8 X10'3 (1.1-4.8); LYMPHOCYTES % (AUTO) 30.4 % (21-51); MEAN CORPUSCULAR HEMOGLOBIN 28.4 PG (27.0-31.0); MEAN CORPUSCULAR HGB CONC 33.1 g/dL (33.0-36.5); MEAN CORPUSCULAR VOLUME 85.6 FL (78-98); MONOCYTES # (AUTO) 0.5 X10'3 (0-0.9); MONOCYTES % (AUTO) 8.9 % (2-12); NEUTROPHILS # (AUTO) 3.4 X10'3 (1.8-7.7); NEUTROPHILS % (AUTO) 58.5 % (42-75); PLATELET COUNT 125 X10'3 (140-440); RED BLOOD COUNT 5.05 X10'6 (4.70-6.10); RED CELL DISTRIBUTION WIDTH 14.2 % (11.5-14.5); WHITE BLOOD COUNT 5.8 X10'3 (4.5-11.0)
[2021-10-20 05:12] LABS: ALANINE AMINOTRANSFERASE 22 U/L (12-78); ALBUMIN 3.2 G/DL (3.4-5.0); ALBUMIN/GLOBULIN RATIO 0.9 (1.1-1.5); ALKALINE PHOSPHATASE 93 IU/L (46-116); ANION GAP 11 (8-16); ASPARTATE AMINO TRANSFERASE 18 U/L (10-37); BILIRUBIN,TOTAL 0.6 MG/DL (0.1-1.0); BLOOD UREA NITROGEN 13 MG/DL (7-18); BUN/CREATININE RATIO 23.2 (5.4-32.0); CALCIUM 8.5 MG/DL (8.5-10.1); CHLORIDE 104 MMOL/L (99-107); CREATININE 0.56 MG/DL (0.60-1.10); GLUCOSE 126 MG/DL (70-104); LIPASE 178 U/L (73-393); PHOSPHORUS 3.6 MG/DL (2.3-4.5); POTASSIUM 4.3 MMOL/L (3.5-5.1); SODIUM 138 MMOL/L (135-145); TOTAL CARBON DIOXIDE 23.4 MMOL/L (24-32); TOTAL PROTEIN 6.8 G/DL (6.4-8.2); eGFR > 90 ML/MIN
[2021-10-20 05:27] LABS: MAGNESIUM 1.8 MG/DL (1.5-2.4)
[2021-10-20 06:00] VITALS: BP 161/86
[2021-10-20] MEDS: K and/or MAG REPLACEMENT MC SCH ×2 (08:00→20:00)
[2021-10-20] MEDS: atorvastatin 20mg tablet PO SCH (09:13)
[2021-10-20] MEDS: docusate sod 100mg capsule PO SCH ×2 (09:14→20:43)
[2021-10-20] MEDS: thiamine 100mg tablet PO SCH (09:14)
[2021-10-20] MEDS: aspirin 81mg, enteric-coated 1 TAB TABLET.DR PO SCH (09:14)
[2021-10-20] MEDS: folic acid 1mg tablet PO SCH (09:14)
[2021-10-20] MEDS: multivitamins, therapeutics tablet PO SCH (09:15)
[2021-10-20] MEDS: clopidogrel 75mg tablet PO SCH (09:15)
[2021-10-20 11:00] VITALS: BP 164/83
[2021-10-20 15:00] VITALS: BP 119/50
[2021-10-20 18:00] VITALS: BP 143/68
[2021-10-20] MEDS: insulin glargine (Lantus) pen - multi-dose SQ SCH (20:50)
[2021-10-20 22:00] VITALS: BP 158/85
[2021-10-21 02:00] VITALS: BP 144/77
[2021-10-21] MEDS: HYDROcodone/acetaminophen 10/325mg tab PO PRN ×2 (05:36→11:49)
[2021-10-21 06:00] VITALS: BP 123/59
[2021-10-21] MEDS: thiamine 100mg tablet PO SCH (07:51)
[2021-10-21] MEDS: aspirin 81mg, enteric-coated 1 TAB TABLET.DR PO SCH (07:51)
[2021-10-21] MEDS: atorvastatin 20mg tablet PO SCH (07:51)
[2021-10-21] MEDS: docusate sod 100mg capsule PO SCH ×2 (07:51→19:01)
[2021-10-21] MEDS: folic acid 1mg tablet PO SCH (07:52)
[2021-10-21] MEDS: clopidogrel 75mg tablet PO SCH (07:52)
[2021-10-21] MEDS: heparin, porcine 5000 units/ml vial SQ SCH ×2 (07:52→22:00)
[2021-10-21] MEDS: multivitamins, therapeutics tablet PO SCH (07:52)
[2021-10-21] MEDS: K and/or MAG REPLACEMENT MC SCH ×2 (08:00→20:00)
[2021-10-21 08:35] LABS: BASOPHILS % (AUTO) 0.3 % (0-1); EOSINOPHILS # (AUTO) 0.1 X10'3 (0-0.9); EOSINOPHILS % (AUTO) 1.6 % (0-6); HEMATOCRIT 43.1 % (42.0-52.0); HEMOGLOBIN 14.4 g/dl (14.0-17.9); LYMPHOCYTES # (AUTO) 1.7 X10'3 (1.1-4.8); LYMPHOCYTES % (AUTO) 21.1 % (21-51); MEAN CORPUSCULAR HGB CONC 33.3 g/dL (33.0-36.5); MEAN PLATELET VOLUME 8.5 FL (7.4-10.4); MONOCYTES # (AUTO) 0.7 X10'3 (0-0.9); MONOCYTES % (AUTO) 9.2 % (2-12); NEUTROPHILS # (AUTO) 5.5 X10'3 (1.8-7.7); NEUTROPHILS % (AUTO) 67.8 % (42-75); PLATELET COUNT 142 X10'3 (140-440); RED BLOOD COUNT 4.95 X10'6 (4.70-6.10); RED CELL DISTRIBUTION WIDTH 14.3 % (11.5-14.5); WHITE BLOOD COUNT 8.2 X10'3 (4.5-11.0)
[2021-10-21 09:12] LABS: ALANINE AMINOTRANSFERASE 21 U/L (12-78); ALBUMIN 3.3 G/DL (3.4-5.0); ALBUMIN/GLOBULIN RATIO 0.8 (1.1-1.5); ALKALINE PHOSPHATASE 96 IU/L (46-116); ANION GAP 12 (8-16); ASPARTATE AMINO TRANSFERASE 17 U/L (10-37); BILIRUBIN,TOTAL 0.7 MG/DL (0.1-1.0); BLOOD UREA NITROGEN 15 MG/DL (7-18); BUN/CREATININE RATIO 29.4 (5.4-32.0); CALCIUM 8.9 MG/DL (8.5-10.1); CHLORIDE 102 MMOL/L (99-107); CREATININE 0.51 MG/DL (0.60-1.10); GLUCOSE 117 MG/DL (70-104); LIPASE 186 U/L (73-393); PHOSPHORUS 3.7 MG/DL (2.3-4.5); POTASSIUM 4.1 MMOL/L (3.5-5.1); SODIUM 136 MMOL/L (135-145); TOTAL CARBON DIOXIDE 22.5 MMOL/L (24-32); TOTAL PROTEIN 7.2 G/DL (6.4-8.2); eGFR > 90 ML/MIN
[2021-10-21 09:29] LABS: MAGNESIUM 1.8 MG/DL (1.5-2.4)
[2021-10-21] MEDS: normal saline 1000ml 1,000 ML IV SCH ×2 (09:30→19:30)
[2021-10-21 11:00] VITALS: BP 126/77
[2021-10-21 15:00] VITALS: BP 145/83
--- NOTE | 2021-10-21 16:10 | NUR ---
Patient refusing to be repositioned, states he will like to rest after having ice placed on his left knee.
--- NOTE | 2021-10-21 16:27 | NUR ---
PAGER ID: [phone] MESSAGE: [id number]. tire builder operator wants to know if patient can be off tele/move to surgical. Martha TEJEDA [phone]
[2021-10-21 18:00] VITALS: BP 148/73
--- NOTE | 2021-10-21 18:31 | NUR ---
Problems reprioritized. Patient report given, questions answered & plan of care reviewed with Mechelle TEJEDA.
[2021-10-21] MEDS: HYDROcodone/acetaminophen 5mg/325mg tablet PO PRN (19:01)
[2021-10-21] MEDS: insulin glargine (Lantus) pen - multi-dose SQ SCH (21:00)
--- NOTE | 2021-10-21 23:11 | NUR ---
Problems reprioritized. Patient report given, questions answered & plan of care reviewed with Sheyla Carvajal. patient transferred to medical surgical floor room 344A patient AAOx4 c/o pain at left knee and left hand. patient able to move left leg but flaccid on the left upper extremity. patient transferred on a bed no complications noted all personal belonging transferred with patient. .
[2021-10-22] VITALS: BP 112/53
[2021-10-22] MEDS: HYDROcodone/acetaminophen 10/325mg tab PO PRN ×5 (00:57→20:42)
[2021-10-22] MEDS: normal saline 1000ml 1,000 ML IV SCH ×3 (05:39→19:13)
[2021-10-22 06:00] VITALS: BP 139/91
--- NOTE | 2021-10-22 06:05 | NUR ---
received report from felicia suarez
[2021-10-22] MEDS: multivitamins, therapeutics tablet PO SCH (07:05)
[2021-10-22] MEDS: clopidogrel 75mg tablet PO SCH (07:05)
[2021-10-22] MEDS: thiamine 100mg tablet PO SCH (07:05)
[2021-10-22] MEDS: folic acid 1mg tablet PO SCH (07:06)
[2021-10-22] MEDS: atorvastatin 20mg tablet PO SCH (07:06)
[2021-10-22] MEDS: aspirin 81mg, enteric-coated 1 TAB TABLET.DR PO SCH (07:06)
[2021-10-22] MEDS: docusate sod 100mg capsule PO SCH ×2 (07:07→20:29)
[2021-10-22] MEDS: heparin, porcine 5000 units/ml vial SQ SCH ×2 (07:09→20:29)
[2021-10-22] MEDS: K and/or MAG REPLACEMENT MC SCH ×2 (07:31→20:00)
[2021-10-22 08:23] LABS: BASOPHILS % (AUTO) 0.3 % (0-1); EOSINOPHILS # (AUTO) 0.1 X10'3 (0-0.9); EOSINOPHILS % (AUTO) 1.5 % (0-6); HEMATOCRIT 44.3 % (42.0-52.0); HEMOGLOBIN 14.9 g/dl (14.0-17.9); LYMPHOCYTES # (AUTO) 1.7 X10'3 (1.1-4.8); LYMPHOCYTES % (AUTO) 23.5 % (21-51); MEAN CORPUSCULAR HEMOGLOBIN 28.8 PG (27.0-31.0); MEAN CORPUSCULAR HGB CONC 33.7 g/dL (33.0-36.5); MEAN CORPUSCULAR VOLUME 85.4 FL (78-98); MEAN PLATELET VOLUME 8.3 FL (7.4-10.4); MONOCYTES # (AUTO) 0.8 X10'3 (0-0.9); MONOCYTES % (AUTO) 10.4 % (2-12); NEUTROPHILS # (AUTO) 4.8 X10'3 (1.8-7.7); NEUTROPHILS % (AUTO) 64.3 % (42-75); PLATELET COUNT 146 X10'3 (140-440); RED BLOOD COUNT 5.18 X10'6 (4.70-6.10); RED CELL DISTRIBUTION WIDTH 14.2 % (11.5-14.5); WHITE BLOOD COUNT 7.4 X10'3 (4.5-11.0)
[2021-10-22 08:39] LABS: ALANINE AMINOTRANSFERASE 22 U/L (12-78); ALBUMIN 3.4 G/DL (3.4-5.0); ALBUMIN/GLOBULIN RATIO 0.8 (1.1-1.5); ALKALINE PHOSPHATASE 102 IU/L (46-116); ANION GAP 6 (8-16); ASPARTATE AMINO TRANSFERASE 20 U/L (10-37); BILIRUBIN,TOTAL 1.1 MG/DL (0.1-1.0); BLOOD UREA NITROGEN 13 MG/DL (7-18); BUN/CREATININE RATIO 26.5 (5.4-32.0); CALCIUM 8.8 MG/DL (8.5-10.1); CHLORIDE 103 MMOL/L (99-107); CREATININE 0.49 MG/DL (0.60-1.10); GLUCOSE 124 MG/DL (70-104); LIPASE 195 U/L (73-393); MAGNESIUM 1.8 MG/DL (1.5-2.4); PHOSPHORUS 3.9 MG/DL (2.3-4.5); POTASSIUM 4.1 MMOL/L (3.5-5.1); SODIUM 134 MMOL/L (135-145); TOTAL CARBON DIOXIDE 24.7 MMOL/L (24-32); TOTAL PROTEIN 7.6 G/DL (6.4-8.2); eGFR > 90 ML/MIN
--- NOTE | 2021-10-22 08:58 | NUR ---
Diabetes consult: pt admitted w/ acute CVA w/ L hemiplegia per EMR. Currently on Carb controlled diet w/ mostly 100% intake of meals though only partially meeting needs. Will provide double protein w/ meals to help better meet nutrient needs. LBM 10/19 receiving routine colace. Pt noted w/ hx of DM, A1c 6.2 well controlled, DM ed not indicated at this time. Will continue to monitor. Recs: 1. Consider liberalizing to Regular diet 2. Double protein TID 3. Bowel care per rx 4. Scaled wts Addendum: 10/22/21 at [address] Amended: Links added.
[2021-10-22 11:00] VITALS: BP 133/77
--- NOTE | 2021-10-22 16:43 | NUR ---
pt is non-compliant w/his diabetic diet and chooses to eat anything that his fam/visitors bring into the hospital, nursing staff has educated pt about his diabetic diet and pt still chooses to eat whatever he wants
--- NOTE | 2021-10-22 18:24 | NUR ---
gave report to felicia henry
[2021-10-22 20:00] VITALS: BP 138/77
[2021-10-22 20:38] VITALS: BP 138/77
[2021-10-22] MEDS: insulin glargine (Lantus) pen - multi-dose SQ SCH (21:00)
[2021-10-22 23:28] VITALS: BP 148/73
[2021-10-23] MEDS: HYDROcodone/acetaminophen 10/325mg tab PO PRN ×4 (01:38→19:35)
[2021-10-23] MEDS: normal saline 1000ml 1,000 ML IV SCH ×2 (04:42→22:10)
--- NOTE | 2021-10-23 06:43 | NUR ---
Report given to ILEANA Obando, for continuation of care. Patient remains in stable condition.
[2021-10-23] MEDS: K and/or MAG REPLACEMENT MC SCH ×2 (08:00→19:44)
[2021-10-23 08:10] VITALS: BP 153/81
[2021-10-23] MEDS: docusate sod 100mg capsule PO SCH ×2 (08:56→19:35)
[2021-10-23] MEDS: aspirin 81mg, enteric-coated 1 TAB TABLET.DR PO SCH (08:57)
[2021-10-23] MEDS: folic acid 1mg tablet PO SCH (08:58)
[2021-10-23] MEDS: atorvastatin 20mg tablet PO SCH (08:59)
[2021-10-23] MEDS: clopidogrel 75mg tablet PO SCH (09:03)
[2021-10-23] MEDS: multivitamins, therapeutics tablet PO SCH (09:04)
[2021-10-23] MEDS: thiamine 100mg tablet PO SCH (09:05)
[2021-10-23] MEDS: heparin, porcine 5000 units/ml vial SQ SCH ×2 (09:11→19:36)
--- NOTE | 2021-10-23 09:18 | NUR ---
Medication administration supervised by Clinical Corrections Officer
--- NOTE | 2021-10-23 10:40 | NUR ---
Patient states last BM was 10/20/2021
--- NOTE | 2021-10-23 10:55 | NUR ---
Charting by Jude ANAYA reviewed by Jennifer Lake RN
--- NOTE | 2021-10-23 10:58 | NUR ---
Hypoactive bowel sounds in all 4 quadrants upon physical examination, pt is constipated
[2021-10-23 11:00] VITALS: BP 143/77
--- NOTE | 2021-10-23 14:01 | NUR ---
Charting by Mya Leblanc NS by Jennifer brooks RN
--- NOTE | 2021-10-23 18:12 | NUR ---
Patient in room [facility]ANK[facility] 344A. I have received report from ILEANA Thomas and had the opportunity to ask questions and assume patient care.
--- NOTE | 2021-10-23 18:20 | NUR ---
Problems reprioritized. Patient report given, questions answered & plan of care reviewed with Melody TEJEDA.
[2021-10-23 19:00] VITALS: BP 125/47
[2021-10-23] MEDS: insulin glargine (Lantus) pen - multi-dose SQ SCH (21:00)
[2021-10-24] MEDS: HYDROcodone/acetaminophen 10/325mg tab PO PRN ×3 (03:20→12:03)
--- NOTE | 2021-10-24 06:26 | NUR ---
Problems reprioritized. Patient report given, questions answered & plan of care reviewed with ILEANA Thomas.
[2021-10-24] MEDS: docusate sod 100mg capsule PO SCH (07:29)
[2021-10-24] MEDS: thiamine 100mg tablet PO SCH (07:29)
[2021-10-24] MEDS: aspirin 81mg, enteric-coated 1 TAB TABLET.DR PO SCH (07:29)
[2021-10-24] MEDS: atorvastatin 20mg tablet PO SCH (07:29)
[2021-10-24] MEDS: folic acid 1mg tablet PO SCH (07:30)
[2021-10-24] MEDS: heparin, porcine 5000 units/ml vial SQ SCH (07:30)
[2021-10-24] MEDS: multivitamins, therapeutics tablet PO SCH (07:30)
[2021-10-24] MEDS: normal saline 1000ml 1,000 ML IV SCH (07:30)
[2021-10-24] MEDS: clopidogrel 75mg tablet PO SCH (07:30)
[2021-10-24] MEDS: K and/or MAG REPLACEMENT MC SCH (08:00)
[2021-10-24 08:35] VITALS: BP 145/80
--- NOTE | 2021-10-24 09:07 | NUR ---
Message: [id number]. Patient tolerating PO fluids, do you still want IVF? Martha TEJEDA [phone]
[2021-10-24 11:47] VITALS: BP 164/78
--- NOTE | 2021-10-24 13:13 | NUR ---
Message: [id number]. Patient is expressing feelings of hopelessness/sadness. Would you suggest any medication? Martha TEJEDA [phone]
--- NOTE | 2021-10-24 16:27 | NUR ---
Called and gave report to Ivan TEJEDA over at [facility].
--- NOTE | 2021-10-24 17:07 | NUR ---
Belongings sent with patient who is now being transported to [facility]. Patient kept free from injuries.
== END 2021-10-24 17:04 | DRG 45 ==
LOC: ER 13:46 → ED HOLD 15:39 → PCU 3S 20:45 → SUR 3N 10-21 23:11
PROVIDERS: ADMIT Family Medicine; ATTEND Family Medicine
PROC: B3251ZZ Computerized Tomography (CT Scan) of Bilateral Common Carotid Arteries using Low Osmolar Contrast (ICD-10-PCS; principal; 2021-10-17)
PROC: B32G1ZZ Computerized Tomography (CT Scan) of Bilateral Vertebral Arteries using Low Osmolar Contrast (ICD-10-PCS; 2021-10-17)
PROC: B32R1ZZ Computerized Tomography (CT Scan) of Intracranial Arteries using Low Osmolar Contrast (ICD-10-PCS; 2021-10-17)
PROC: B3281ZZ Computerized Tomography (CT Scan) of Bilateral Internal Carotid Arteries using Low Osmolar Contrast (ICD-10-PCS; 2021-10-17)
PROC: B3251ZZ Computerized Tomography (CT Scan) of Bilateral Common Carotid Arteries using Low Osmolar Contrast (ICD-10-PCS; 2021-10-19)
PROC: B32G1ZZ Computerized Tomography (CT Scan) of Bilateral Vertebral Arteries using Low Osmolar Contrast (ICD-10-PCS; 2021-10-19)
PROC: B32R1ZZ Computerized Tomography (CT Scan) of Intracranial Arteries using Low Osmolar Contrast (ICD-10-PCS; 2021-10-19)
PROC: B3281ZZ Computerized Tomography (CT Scan) of Bilateral Internal Carotid Arteries using Low Osmolar Contrast (ICD-10-PCS; 2021-10-19)
DX: I63.511 Cerebral infarction due to unspecified occlusion or stenosis of right middle cerebral artery (principal); G81.94 Hemiplegia, unspecified affecting left nondominant side; E11.9 Type 2 diabetes mellitus without complications; K21.9 Gastro-esophageal reflux disease without esophagitis; M10.9 Gout, unspecified; R47.81 Slurred speech; M47.812 Spondylosis without myelopathy or radiculopathy, cervical region; M48.02 Spinal stenosis, cervical region; Z91.19 Patient's noncompliance with other medical treatment and regimen
CPT/HCPCS: 36415; 70200; 70450; 70496; 70498; 70551; 71045; 72141; 80053; 80061; 80305; 80320; 82948; 83036; 83690; 83735; 84100; 84484; 85025; 85610; 85730; 87081; 92508; 92616; 93005; 93306; 97110; 97116; 97161; 97162; 97530; 99285; G0378; J1644; J1815; J2060; J2405; J7030; Q9967